=== PATIENT | female | born 1995 | race African-American/Black ===

== ENCOUNTER 2020-09-11 17:25 | Emergency (ER) | payer OTHER ==
[2020-09-11] MEDS ORDERED: IBUPROFEN 800 MG TABLET PO STA (18:16)
[2020-09-11] MEDS ORDERED: methocarbamoL 500 MG TABLET PO STA (18:16)
--- NOTE | 2020-09-11 18:18 | ED Physician Documentation ---
PD HPI BACK PAIN - Stated complaint Stated Complaint: BACK PX - Chief complaint Chief Complaint: Back Pain - History obtained from History obtained from: Patient (Lifting something off the floor at work at 11am. Developed band like low back pain then and some pain to RLE. No weak/numb/tingly. No saddle anesthesia, no fever. No poss preg.) Review of Systems Constitutional: denies: Fever, Chills Respiratory: denies: Dyspnea, Cough GI: denies: Abdominal Pain, Nausea, Vomiting PD PAST MEDICAL HISTORY - Past Medical History Past Medical History: No - Past Surgical History Past Surgical History: No - Present Medications Home Medications: Ambulatory Orders Medication Instructions Recorded Confirmed Ibuprofen [Motrin] 800 mg PO Q8H PRN #30 tablet 09/11/20 Methocarbamol [Robaxin-750] 750 mg PO TID PRN #15 tablet 09/11/20 - Allergies Allergies/Adverse Reactions: Allergies Allergy/AdvReac Type Severity Reaction Status Date / Time No Known Drug Allergies Allergy Verified 09/11/20 18:24 - Social History Does the pt smoke?: No Smoking Status: Never smoker PD ED PE NORMAL - Vitals Vital signs reviewed: Yes - General General: Alert and oriented X 3, No acute distress - Back Back: No spinal TTP, Other (Muscle TTP right low back >L low back) - Neuro Neuro: Other (symm sensation, normal strength through BLE. Normal reflexes.) Results - Vitals Vitals: Vital Signs - 24 hr 09/11/20 17:56 Temperature 36.3 C L Heart Rate 81 Respiratory 15 Rate Blood Pressure 122/76 O2 Saturation 99 Oxygen O2 Source Room air PD MEDICAL DECISION MAKING - ED course ED course: Muscular LBP no red flags. Departure - Departure Disposition: 01 Home, Self Care Clinical Impression: Low back strain Qualifiers: Encounter type: initial encounter Qualified Code(s): S39.012A - Strain of muscle, fascia and tendon of lower back, initial encounter Condition: Good Record reviewed to determine appropriate education?: Yes Instructions: ED Low Back Pain Injury Prescriptions: Ibuprofen [Motrin] 800 mg PO Q8H PRN #30 tablet PRN Reason: PAIN &/OR FEVER Methocarbamol [Robaxin-750] 750 mg PO TID PRN #15 tablet PRN Reason: back pain Comments: Return if worse or if you develop any of the symptoms we talked about. Followup with your primary care doctor next week. Forms: Activity restrictions
[2020-09-11 18:28] VITALS: BP 127/74
== END 2020-09-11 18:32 | disposition home or self-care (01) ==
LOC: ED 17:25
DX: S39.012A Strain of muscle, fascia and tendon of lower back, initial encounter (principal); X50.0XXA Overexertion from strenuous movement or load, initial encounter; Y99.0 Civilian activity done for income or pay
CPT/HCPCS: 99282; 99283; A9270